=== PATIENT | male | born 1975 | race African-American/Black ===

== ENCOUNTER 2023-07-28 13:21 | Emergency (ER) | payer OTHER ==
[~2023-07-28] VITALS: Ht 175.3 cm; Wt 75.0 kg
[2023-07-28 13:26] VITALS: BP 135/88; PULSE 98; RESP 18; TEMP 98.4; O2SAT 99
[2023-07-28 14:10] LABS: BASOPHILS % 0.6 % (0.0-2.0); EOSINOPHILS % 0.7 % (0.0-5.0); HEMATOCRIT. 40.3 % (42.0-52.0); HEMOGLOBIN. 13.7 g/dL (14.0-18.0); LYMPHOCYTES % 22.6 % (20.0-50.0); MEAN CORPUSCULAR HEMOGLOBIN 29.6 pg (28.0-32.0); MEAN CORPUSCULAR HGB CONC 34.1 g/dL (31.0-37.0); MEAN CORPUSCULAR VOLUME 86.8 fL (80.0-94.0); MEAN PLATELET VOLUME 7.6 fl (7.4-10.4); MONOCYTES % 13.4 % (2.0-8.0); NEUTROPHILS % 62.7 % (40.0-76.0); PLATELET 186 x1000/uL (130-400); RED BLOOD CELL COUNT 4.65 mill/uL (4.7-6.1); RED CELL DISTRIBUTION WIDTH 14.8 % (11.6-14.6); WHITE BLOOD COUNT 7.9 x1000/uL (4.5-11.0)
[2023-07-28 14:24] LABS: ALANINE AMINOTRANSFERASE 26 IU/L (10-49); ALBUMIN 4.1 g/dL (3.2-4.8); ASPARTATE AMINOTRANSFERASE 41 IU/L (<34); BILIRUBIN TOTAL 0.5 mg/dL (0.1-1.0); CALCIUM 9.2 mg/dL (8.7-10.4); CARBON DIOXIDE 27 mEq/L (21-32); CHLORIDE 106 mEq/L (98-107); CREATININE 0.9 mg/dL (0.6-1.3); GLUCOSE 100 mg/dL (70-105); PROTEIN TOTAL 7.1 g/dL (6.0-8.3); SODIUM 139 mEq/L (136-145); TROPONIN I HIGH SENSITIVITY 6 ng/L (3.0-53); UREA NITROGEN BLOOD 18 mg/dL (9-23)
[2023-07-28 14:27] LABS: ETHANOL BLOOD < 10 mg/dL (<10)
[2023-07-28 14:31] LABS: PROTHROMBIN TIME 10.6 sec (9.6-11.0)
[2023-07-28] MEDS: SODIUM CHLORIDE 0.9% 1,000 ML IV ONE (14:34)
== END 2023-07-28 14:25 | disposition home or self-care (01) ==
LOC: ER 13:21
DX: I47.10 Supraventricular tachycardia, unspecified (principal); I49.9 Cardiac arrhythmia, unspecified
CPT/HCPCS: 80053; 80320; 85025; 85610; 84484; 36415; 71045; 93005; 99285; J7030; G0480

== ENCOUNTER 2023-08-09 12:23 | Emergency (ER) | payer OTHER ==
[~2023-08-09] VITALS: Ht 170.2 cm; Wt 63.0 kg
[2023-08-09 12:31] VITALS: O2SAT 99
[2023-08-09] MEDS: IBUPROFEN 600MG TABLET PO ONE (13:08)
[2023-08-09] MEDS ORDERED: IBUP-2029 MT (14:12)
[2023-08-09 15:20] VITALS: BP 133/83; PULSE 70; RESP 19; TEMP 98.3
== END 2023-08-09 15:41 | disposition home or self-care (01) ==
LOC: ER 12:23
DX: S82.099A Other fracture of unspecified patella, initial encounter for closed fracture (principal); X58.XXXA Exposure to other specified factors, initial encounter; Y93.89 Activity, other specified; Y92.89 Other specified places as the place of occurrence of the external cause; Y99.8 Other external cause status
CPT/HCPCS: 29505; 73562; 99283